=== PATIENT | male | born 1965 | race Caucasian/White ===

== ENCOUNTER 2024-09-25 08:59 | Emergency (ER) | payer OTHER, SELFPAY ==
[2024-09-25 09:13] VITALS: BP 134/90; PULSE 73; RESP 18; TEMP 36.4; O2SAT 99
--- NOTE | 2024-09-25 09:25 | ED.EAR ---
HPI - Ear Problem General Chief complaint: Ear Stated complaint: bilateral ear discomfort Time Seen by Provider: 09/25/24 09:16 Source: patient Mode of arrival: ambulatory Limitations: no limitations History of Present Illness HPI Narrative: Here for a one month history of muffled hearing and ear pressure on the left. He reports some muffled hearing in both ears. He reports a history of similar symptoms in the past. He reports being prescribed a nose spray and another medication (not sure which medication) for this issue in the past. He reports he has had trouble with ear wax in the past mainly on left ear. He reports approximately 2 weeks ago seeing a [facility] health provider and being prescribed doxycycline for this concern. He completed the doxycycline 2 days ago. When prescribed this medication 2 weeks ago, he had nasal drainage, headache, cough, and ear pressure. He reports all symptoms improved except for the year muffling and pressure mainly on the left. He denies any other recent illness and reports he is otherwise in his usual state of health. He also reports looking for a new primary care provider. All systems reviewed and negative except as noted in HPI and below. Related Data Home Medications ?Medication ?Instructions ?Recorded ?Confirmed ?Last Taken ?Type amlodipine 5 mg tablet mg 09/25/24 Unknown History famotidine 40 mg tablet mg 09/25/24 Unknown History Allergies Allergy/AdvReac Type Severity Reaction Status Date / Time sumatriptan (From Imitrex) Allergy Severe Chest Pain Verified 09/25/24 09:15 Penicillins Allergy Mild Rash Verified 09/25/24 09:15 Review of Systems Review of Systems: CONSTITUTIONAL: Denies fever, chills, or sweats. Reports recent illness 2 weeks ago as noted above. EYES: Denies visual changes, redness, or discharge. ENT: Denies rhinorrhea, congestion, or sore throat. reports otalgia. reports pain is worse on left than right ear. Reports muffled hearing in both ears, worse on left. CARDIOVASCULAR: Denies chest pain, palpitations, or edema. RESPIRATORY: Denies cough or dyspnea. GASTROINTESTINAL: Denies abdominal pain, nausea, vomiting, or diarrhea. GENITOURINARY: Denies dysuria or hematuria. SKIN: Denies rash or itching. MUSCULOSKELETAL: Denies back pain, joint pain, or myalgia. NEUROLOGIC: Denies headache, numbness, or weakness. PSYCHIATRIC: Denies anxiety or depression. All other systems reviewed are negative, except as documented in HPI. PMFSH Comments At time of signature, I have reviewed and agree with nursing past medical, surgical, social and family history unless otherwise noted. Please see nursing chart for further information. There is no relevant family history pertinent to the presenting complaint. Exam Narrative: GENERAL: This is a well-nourished, well-developed patient, in no apparent distress. HEAD: normocephalic, atraumatic. EYES: Sclera clear/white. Vision is grossly intact. EARS: External ears normal, auditory canals clear on Right/ EAC cerumen impaction on Left. TM opacified on right with fluid level. TM on left not visible. Hard of Hearing. NOSE: External nose normal with no obvious nasal discharge, nares with redness and rhinorrhea. THROAT: Mucous membranes moist, posterior pharynx cobblestoning. NECK: Neck supple, non-tender without lymphadenopathy. CARDIOVASCULAR: Regular rate and rhythm without murmurs, gallops, or rubs. RESPIRATORY: Clear to auscultation. Breath sounds equal bilaterally. No wheezes, rales, or rhonchi. SKIN: warm, Dry, intact with no suspicious lesions or rash, good texture and turgor. NEURO: awake, alert, and oriented to person, place and time. There were no obvious focal neurologic abnormalities. EXTREMITIES: No joint tenderness, effusion, or edema noted. Course Course Emergency Course: Patient is aware of diagnosis, understands and agrees to treatment plan. He tolerated cerumen removal well. Anticipatory guidance given. Patient agrees to follow-up as directed and is aware of reasons to seek care at the emergency department. Please be advised this is a medical document. It is intended for [id number] communication. It is written in medical language and may contain unfamiliar abbreviations or verbiage. Medical documents are intended to carry relevant information, facts as evident, and the clinical opinion of the practitioner at the time of the encounter. This report may have been done utilizing a voice recognition system. Attempts have been made to correct errors. However, there may be uncorrected grammatical, spelling, and recognition errors present. The file time of this note does not necessarily represent the time the patient was seen. Level of Care: Express Care Visit Vital Signs Vital signs: Vital Signs Temperature 36.4 C 09/25/24 09:13 Pulse Rate 73 09/25/24 09:13 Respiratory Rate 18 09/25/24 09:13 Blood Pressure 134/90 09/25/24 09:13 Pulse Oximetry 99 09/25/24 09:13 Oxygen Delivery Room Air 09/25/24 09:13 Temperature 36.4 C 09/25/24 09:13 Pulse Rate 73 09/25/24 09:13 Respiratory Rate 18 09/25/24 09:13 Blood Pressure 134/90 09/25/24 09:13 Pulse Oximetry 99 09/25/24 09:13 Oxygen Delivery Room Air 09/25/24 09:13 Reviewed Procedures Ear Wax Removal Left Ear: Ear Wax Removal Date: 09/25/24 Ear Wax Removal Time: 10:00 Cerumenolytic Used: other Results: Re-examined: cerumen removed completely TM Examination: TM(s) erythematous (left) Ear Canal Exam: atraumatic Patient Tolerated Procedure: well and no complications Complications: no problems Technique: ear canal irrigated and ear canal curetted Additional Comments: Ear canal irrigated and curetted, however large piece of cerumen was not mobile. Applied Debrox and let patient sit about 15 minutes with this soaking into the cerumen. I returned to room and continued irrigation and used curet to remove large piece of cerumen approximately 2cm in length. Medical Decision Making MDM Narrative Medical decision making narrative: Procedure explained to patient and he was in agreement with the plan to remove cerumen today. He tolerated the procedure well. Discussed physical exam findings and reviewed prescriptions. Advised supportive measures and reviewed signs symptoms for patient to go to the ER. The patient is in no acute distress and stable. Patient is appropriate for outpatient treatment and follow-up. He was discharged with 0/10 pain in bilateral ears. He will take medications as prescribed for left AOM and allergic rhinitis. He will establish with PCP. Vital Signs Vital Signs: Vital Signs Temperature 36.4 C 09/25/24 09:13 Pulse Rate 73 09/25/24 09:13 Respiratory Rate 18 09/25/24 09:13 Blood Pressure 134/90 09/25/24 09:13 Pulse Oximetry 99 09/25/24 09:13 Oxygen Delivery Room Air 09/25/24 09:13 Temperature 36.4 C 09/25/24 09:13 Pulse Rate 73 09/25/24 09:13 Respiratory Rate 18 09/25/24 09:13 Blood Pressure 134/90 09/25/24 09:13 Pulse Oximetry 99 09/25/24 09:13 Oxygen Delivery Room Air 09/25/24 09:13 Discharge Plan Discharge Clinical Impression: Otitis media, Cerumen impaction, Acute non-seasonal allergic rhinitis Patient Disposition: Home, Self-Care Condition: Stable Instructions: Antibiotic Form, Ear Infection (AC) Additional Instructions: You were diagnosed with a Left Ear Infection today. Cerumen removal was completed in office. Start over the counter Zyrtec (cetirizine) once daily at night and Flonase 2 sprays per nostril per day as discussed today for chronic allergy symptoms. Take medications as prescribed. Follow printed instructions. Follow up with Primacy Care Provider. Patient Language: Macedonian Prescriptions: New azithromycin 250 mg tablet See Rx Instructions PO .COMPLEX Qty: 6 0RF Rx Instructions: For 250 mg dose pack: take 500 mg today (day 1), then 250 mg for 4 days (days 2-5) No Action famotidine 40 mg tablet amlodipine 5 mg tablet Follow-up/Referrals: PHYSICIAN,SUPERVISOR IN CHARGE [Primary Care Provider] - Time of Disposition: 10:22
--- OUTSIDE RECORDS SUMMARY | 2024-09-25 09:42 | XMS_ITS | Encounter Summary ---
Author Organization [facility] Address [address] [place] [address] Care Team Providers Care Donkey Ride Operator Name Role Phone Marvin Vaughn DO Primary Care Provider Veronica Bhatt NP Primary Care Provider [phone] Villa Morel MD Primary Care Provider + Encounter Details Date Type Department Care Team (Late st Contact Info) Description 10/18/2023 Kwicr Message [address] [address] [facility] results Social History Tobacco Use Types Packs/Day Years Used Date Smoking Tobacco: Former Cigarettes Smokeless Tobacco: Never Alcohol Use Standard Drinks/Week Comments Yes 0 (1 standard drink = 0.6 oz pur e alcohol) ocassionally PHQ-2 Answer Date Recorded Patient Health Questionnaire-2 Score 0 10/03/2023 Sex and Gender Information Value Date Recorded Sex Assigned at Not on file Legal Sex Male 7:53 AM CDT Gender Identity Not on file Sexual Orientation Not on file documented as of this encounter Progress Notes * Marvin Vaughn DO - 10/19/2023 9:34 AM CST As state in previous message, he does have occasional extra beats but they occur <1% of the time, therefore treatment is not typically recommended. However, if it really really bothers him I wouldnot be opposed to try a low dose of medication to help with this ERA WASHER * Roula Ye RN - 10/19/2023 9:24 AM CST Please advise? ERA WASHER documented in this encounter Plan of Treatment Not on file documented as of this encounter Visit Diagnoses Not on filedocumented in this encounter Care Teams Donkey Ride Operator Relationship Specialty Start Date End Date Marvin Vaughn DO PCP - General FAMILY PRACTICE 07/10/23 11/19/23 Veronica Bhatt NP PCP - General Nurse Practitioner Family 11/20/2303/14 Villa Morel MD [address] [facility] [address] [place] [id number] PCP - General FAMILY PRACTICE 03/29/24 documented as of this encounter
--- OUTSIDE RECORDS SUMMARY | 2024-09-25 09:42 | XMS_ITS | Encounter Summary ---
Author Organization [facility] Address [address] [place] [address] Care Team Providers Care Supervisor Labor Gang Name Role Phone Veronica Bhatt NP Primary Care Provider [phone] Villa Morel MD Primary Care Provider + Encounter Details Date Type Department Care Team (Late st Contact Info) Description 11/20/2023 Reds10 Message [facility] [address] [place] [id number] [place] [address] [place] [address] Testosterone Social History Tobacco Use Types Packs/Day Years Used Date Smoking Tobacco: Former Cigarettes Passive Smoke Exposure: Past Smokeless Tobacco: Never Alcohol Use Standard Drinks/Week Comments Yes 0 (1 standard drink = 0.6 oz pur e alcohol) ocassionally PHQ-2 Answer Date Recorded Patient Health Questionnaire-2 Score 0 11/20/2023 Sex and Gender Information Value Date Recorded Sex Assigned at Not on file Legal Sex Male 7:53 AM CDT Gender Identity Not on file Sexual Orientation Not on file documented as of this encounter Plan of Treatment Not on file documented as of this encounter Visit Diagnoses Not on filedocumented in this encounter Care Teams Supervisor Labor Gang Relationship Specialty Start Date End Date Veronica Bhatt NP PCP - General Nurse Practitioner Family 11/20/2303/14 Villa Morel MD [address] [facility] [address] [place] [address] PCP - General FAMILY PRACTICE 03/29/24 documented as of this encounter
--- OUTSIDE RECORDS SUMMARY | 2024-09-25 09:42 | XMS_ITS | Clinical Summary ---
Author Organization [facility] Address [address] [place] [address] Care Team Providers Care Roof Fitter Name Role Phone Villa Morel MD Primary Care Provider + Allergies Active Allergy Reactions Criticality Noted Date Comments Frovatriptan Unknown 07/06/2011 Penicillins Unknown 11/16/2022 Sumatriptan Unknown 07/06/2011 Medications multi vitamin/minerals (THERA-M ENHANCED) tablet Take 1 tablet by mouth daily. Active amLODIPine (NORVASC) 5 MG tabletIndications :Essential hypertension Take 1 tablet (5 mg total) by mouth daily. 90 tablet 1 4 Active montelukast (SINGULAIR) 10 MG tabletIndications :Environmental allergies take 1 tablet by mouth nightly at bedtime 30 tablet 4 Active omeprazole (PRILOSEC) 40 MG capsuleIndication s:Acid reflux Take 1 capsule (40 mg total) by mouth daily. 90 capsule 2 4 Active famotidine (PEPCID) 40 MG tabletIndications :Acid reflux Take 1 tablet (40 mg total) by mouth daily. 90 tablet 2 4 Active Active Problems Problem Noted Date Diagnosed Date NEVILLE (dyspnea on exertion) 02/13/2023 Essential hypertension 02/13/2023 Palpitations 02/13/2023 Ear fullness 04/29/2014 Overview (11/20/2023): Date Onset: 04/29/2014 Rhinitis, allergic 12/31/2012 Overview (11/20/2023): Date Onset: 12/31/2012 Arthritis 07/06/2011 Overview (11/20/2023): Note: rt. hand Date Onset: 01/17 Low back pain 07/06/2011 Overview (11/20/2023): Date Onset: 11/13 Migraine 07/06/2011 Overview (11/20/2023): Date Onset: 06/16 Onychomycosis of toenail 07/06/2011 Overview (11/20/2023): Date Onset: 08/14 Family History Medical History Relation Comments Heart Disease Father Kidney Cancer Mother Relation Status Comments Father Mother Social History Tobacco Use Types Packs/Day Years Used Date Smoking Tobacco: Former Cigarettes Passive Smoke Exposure: Past Smokeless Tobacco: Never Tobacco Cessation:Counseling Given: Not Answered Alcohol Use Standard Drinks/Week Comments Yes 0 (1 standard drink = 0.6 oz pur e alcohol) ocassionally PHQ-2 Answer Date Recorded Patient Health Questionnaire-2 Score 0 04/08/2024 Sex and Gender Information Value Date Recorded Sex Assigned at Not on file Legal Sex Male 7:53 AM CDT Gender Identity Not on file Sexual Orientation Not on file Last Filed Vital Signs Vital Sign Reading Time Taken Comments Blood Pressure 128/74 04/08/2024 4:02 PM CDT Pulse 82 04/08/2024 4:02 PM CDT Temperature 36.6 C (97.9 F) 04/08/2024 4:02 PM CDT Respiratory Rate 18 04/08/2024 4:02 PM CDT Oxygen Saturation 98% 04/08/2024 4:02 PM CDT Inhaled Oxygen Concentration - - Weight 89.1 kg (196 lb 6.4 oz) 04/08/2024 4:02 P M CDT Height 175.3 cm (5' 9 ) 04/08/2024 4:02 PM CDT Body Mass Index 29 04/08/2024 4:02 PM CDT Plan of Treatment Health Maintenance Due Date Last Done Comments Hepatitis B Vaccines (1 of 3 - 19+ 3-dose series) 1984 COVID-19 Vaccine (1 - 2023-2 5 season) 2024 Influenza Adult (#1) 2024 Annual Physical 07/10/2024 07/10/2023 PHQ-2 (Physician [place]) 08/14/2024 04/08/2024 DTaP, Tdap and Td Vaccines ( 1 - Tdap) 11/19/2024 Postponed from 01/29 (Patient Refused) Zoster Vaccines (1 of 2) 11/19/2024 Pos tponed from 01/30/2016 (Patient Refused) Colorectal Cancer Screening Colonoscopy (10 Years) 11/22/2024 Postponed from (Patient Refused) PHQ-2 (Physician [place]) 04/08/2025 04/08/2024 Hepatitis C 11/19/2053 Postponed from 01/30/1984 (Patient Refused) Meningococcal B Vaccine Aged Out No l onger eligible based on patient's age to complete this topic Meningococcal Vaccine Aged Out No domingo shakeel eligible based on patient's age to complete this topic Pneumococcal Vaccine: Pediat rics (0 to 5 Years) and At-Risk Patients (6 to 64 Years) Aged Out No longer eligi ble based on patient's age to complete this topic RSV Immunizations Under 20 Months Aged Out No longer eligible based on patient's age to complete this topic Insurance Care Teams Roof Fitter Relationship Specialty Start Date End Date Villa Morel MD [address] [address] PCP - General FAMILY PRACTICE 03/29/24
--- OUTSIDE RECORDS SUMMARY | 2024-09-25 09:42 | XMS_ITS | Continuity of Care Document ---
Author Organization [facility] Address [address] [facility] [address] [place] [address] Phone Care Team Providers Care Script Editor Name Role Phone Cuong Martel Unavailable Unavailable Advance Directives Directive Yes / No Effective Date File Name No Information Encounters Encounter Description Practice Location Reason(s) For Visit Diagnoses Date Provider Providers Copied on Encounter [facility], [address], [place], [place], [id number], [place] tel:[phone] [facility] No Information Sep-0 1-200 6 Tahmina Hutchins. [address], [place], [address], [place]. tel:[phone] Referring Provider: Karissa Ramirez [address], [place], [place], [facility]. tel:[phone] Family History Family Member Type Diagnosis Age At Onset No Information Payers Payer name Insurance type Covered republican ID Authorandrésa dave(s) [facility] CI [id number] Social History Type Description Quantity Date Captured Comments Sex Male Smoking Status No Information Chief Complaint And Reason For Visit No Information Reason For Referral Reason For Referral No Information History Of Present Illness Encounter Date Complaint History Of Prese nt Illness No Information Functional Status Date Functional Assessmen t No Information Instructions Date Instruction Additional Infor mation No Information Assessments Type Assessment Date No Information Patient Care Teams Name Effective Dates (start - stop) Status Members No Information
--- OUTSIDE RECORDS SUMMARY | 2024-09-25 09:42 | XMS_ITS | Encounter Summary ---
Author Organization [facility] Address [address] [place] [address] Care Team Providers Care Highway Inspector Name Role Phone Marvin Vaughn DO Primary Care Provider Veronica Bhatt NP Primary Care Provider [phone] Villa Morel MD Primary Care Provider + Encounter Details Date Type Department Care Team (Late st Contact Info) Description 08/22/2023 Make Music TV Message [facility] [address] [place] [address] [facility] Provider results Social History Tobacco Use Types Packs/Day Years Used Date Smoking Tobacco: Former Cigarettes Smokeless Tobacco: Never Alcohol Use Standard Drinks/Week Comments Yes 0 (1 standard drink = 0.6 oz pur e alcohol) ocassionally PHQ-2 Answer Date Recorded Patient Health Questionnaire-2 Score 0 07/10/2023 Sex and Gender Information Value Date Recorded Sex Assigned at Not on file Legal Sex Male 7:53 AM CDT Gender Identity Not on file Sexual Orientation Not on file documented as of this encounter Plan of Treatment Not on file documented as of this encounter Visit Diagnoses Not on filedocumented in this encounter Additional Health Concerns Infection Onset Date Last Indicated Resolved Time COVID-19 Rule Out 10/03/2023 10/03/2023 10/03/2023 3:22 PM CELL CHANGER documented as of this encounter Care Teams Highway Inspector Relationship Specialty Start Date End Date Marvin Vaughn DO PCP - General FAMILY PRACTICE 07/10/23 11/19/23 Veronica Bhatt NP PCP - General Nurse Practitioner Family 11/20/2303/14 Villa Morel MD [address] [facility] [address] [place] [phone] PCP - General FAMILY PRACTICE 03/29/24 documented as of this encounter
[2024-09-25] MEDS: CARBAMIDE PEROXIDE 6.5% OT SOLN 15 ML BTL 5 DROP LEFT EAR (09:45)
--- OUTSIDE RECORDS SUMMARY | 2024-09-25 09:45 | XMS_ITS | Continuity of Care Document ---
Author Organization [facility] Address [address] [facility] [address] [place] [address] Phone Care Team Providers Care Black Ash Burner Operator Name Role Phone Cuong Martel Unavailable Unavailable Advance Directives Directive Yes / No Effective Date File Name No Information Encounters Encounter Description Practice Location Reason(s) For Visit Diagnoses Date Provider Providers Copied on Encounter [facility], [address], [place], [place], [id number], [place] tel:[phone] [facility] No Information Sep-0 1-200 6 Tahmina Hutchins. [address], [place], [address], [place]. tel:[phone] Referring Provider: Karissa Ramirez [address], [place], [place], [facility]. tel:[phone] Family History Family Member Type Diagnosis Age At Onset No Information Payers Payer name Insurance type Covered republican ID Authorandrésa dave(s) [facility] CI [id number] Social History Type Description Quantity Date Captured [...]
== END 2024-09-25 10:27 | disposition home or self-care (01) ==
PROVIDERS: Emergency Provider Nurse Practitioner
DX: H66.92 Otitis media, unspecified, left ear (principal); H61.22 Impacted cerumen, left ear; J30.89 Other allergic rhinitis; I10 Essential (primary) hypertension; K21.9 Gastro-esophageal reflux disease without esophagitis
CPT/HCPCS: 99213; A9270; G0463